=== PATIENT | female | born 1965 | race Two or more races ===

== ENCOUNTER → 2022-07-12 | Emergency (ER) | payer OTHER ==
[~2022-07-12] MED LIST: CEFEPIME-D2 GM/50 ML; COZAAR50 MG; CUBICIN RF500 MG; NORVASC10 MG; QUETIAPINE FUM400 M1; TRAZODONE HCL150 MG
== END | disposition left against medical advice (07) ==
LOC: ER 10:00
DX: Z53.21 Procedure and treatment not carried out due to patient leaving prior to being seen by health care provider (principal)